=== PATIENT | female | born 1970 | race Two or more races ===

== ENCOUNTER 2024-03-29 13:17 | Inpatient (IN) | payer MEDICARE, MEDICAID ==
[~2024-03-29] VITALS: Ht 154.9 cm; Wt 84.5 kg
[2024-03-29 14:41] LABS: HEMATOCRIT 44.3 % (36-46); HEMOGLOBIN 15.2 g/dL (12.0-16.0); MEAN CORPUSCULAR HEMOGLOBIN 30.2 pg (26.0-34.0); MEAN CORPUSCULAR HGB CONC 34.3 G/dL (31.0-37.0); MEAN CORPUSCULAR VOLUME 88 fL (80-100); PLATELET COUNT (AUTO) 263 K/uL (150-450); RED BLOOD CELL COUNT(AUTO) 5.03 MIL/uL (4.00-5.20); RED CELL DISTRIBUTION WIDTH 13.1 % (11.5-14.5); WHITE BLOOD COUNT (AUTO) 9.2 K/uL (4.5-11.0)
[2024-03-29 14:45] LABS: ANION GAP 10 mmol/L (8-16); CALCIUM, TOTAL 9.5 mg/dL (8.8-10.5); CARBON DIOXIDE 21 mmol/L (22-29); CHLORIDE 102 mmol/L (98-107); CREATININE 0.66 mg/dL (0.60-1.30); GLOMERULAR FILTR. RATE CALC > 60 mL/min (>60); GLUCOSE,RANDOM 111 mg/dL (70-110); POTASSIUM 4.3 mmol/L (3.5-5.1); SODIUM SERUM 133 mmol/L (136-145); UREA NITROGEN, BLOOD 10 mg/dL (7-18)
[2024-03-29 15:22] LABS: ALCOHOL, BLOOD (SERUM) < 3 mg/dL (0-10)
[2024-03-29 16:18] LABS: BAND NEUTROPHILS % (MANUAL) 0 % (0-5); EOSINOPHILS % (MANUAL) 3 % (1-6); LYMPHOCYTES % (MANUAL) 20 % (22-44); MONOCYTES % (MANUAL) 5 % (2-9); SEGMENTED NEUTROPHILS % 72 % (40-70); TOTAL CELLS COUNTED 100
[2024-03-29 17:23] LABS: COVID AG,FIA SOURCE NASAL SWAB
[2024-03-29 17:41] LABS: SARS-COV2 (COVID) ANTIGEN,FIA Negative (Negative)
[2024-03-29] MEDS ORDERED: OMEP40CA21 PO (18:25)
[2024-03-29] MEDS ORDERED: NITR-75 PO (18:25)
[2024-03-29] MEDS ORDERED: CLON2TAB11 PO (18:25)
[2024-03-29] MEDS ORDERED: PRAZ5 PO (18:25)
[2024-03-29] MEDS ORDERED: DULO20CA71 PO (18:25)
[2024-03-29] MEDS ORDERED: LOSA-382 PO (18:25)
[2024-03-29] MEDS ORDERED: METF-445 PO (18:25)
[2024-03-29] MEDS ORDERED: HYDR25TA PO (18:25)
[2024-03-29] MEDS: ZOLPIDEM TARTRATE 10 MG TABLET PO PRN (19:30)
[2024-03-29] MEDS: LORazepam 2 MG TABLET PO PRN (19:30)
[2024-03-29] MEDS: QUEtiapine FUMARATE 100 MG TABLET PO PRN (19:30)
[2024-03-29] MEDS: ACETAMINOPHEN 325 MG TABLET PO ONE (20:06)
[2024-03-30] MEDS ORDERED: PNEUMOCOCCAL VACCINE POLYVALENT 0.5 ML SYRINGE [PPSV23] IM. ONE (01:15)
[2024-03-30 03:48] LABS: APPEARANCE,URINE CLEAR (CLEAR); BILIRUBIN,URINE NEGATIVE (NEGATIVE); COLOR,URINE YELLOW (YELLOW); GLUCOSE, URINE (UA) NEGATIVE (NEGATIVE); KETONES,URINE =>150 mg/dL (NEGATIVE); LEUKOCYTE ESTERASE ,URINE NEGATIVE (NEGATIVE); NITRATE,URINE NEGATIVE (NEGATIVE); OCCULT BLOOD,URINE NEGATIVE (NEGATIVE); PROTEIN,URINE TRACE mg/dL (NEGATIVE)
[2024-03-30 03:52] LABS: ALCOHOL, URINE DRUG SCREEN NEGATIVE (NEGATIVE); AMPHET/METH SCREEN,URINE NEGATIVE (NEGATIVE); BARBITURATE SCREEN, URINE NEGATIVE (NEGATIVE); BENZODIAZEPINES SCREEN,URINE NEGATIVE (NEGATIVE); CANNABINOID SCREEN,URINE POSITIVE (NEGATIVE); COCAINE SCREEN,URINE NEGATIVE (NEGATIVE); METHADONE SCREEN, URINE NEGATIVE (NEGATIVE); OPIATE SCREEN,URINE NEGATIVE (NEGATIVE); PHENCYCLIDINE SCREEN,URINE NEGATIVE (NEGATIVE)
[2024-03-30] MEDS: MetFORMIN HCL 850 MG TABLET PO SCH (06:43)
[2024-03-30] MEDS: LOSARTAN POTASSIUM 50 MG TABLET PO SCH (08:40)
[2024-03-30] MEDS: HYDROCHLOROTHIAZIDE 25 MG TABLET PO SCH (08:40)
[2024-03-30] MEDS: OMEPRAZOLE 20 MG CAPSULE PO SCH (08:40)
[2024-03-30] MEDS ORDERED: MAG HYDROX/ALUMINUM HYD/SIMETH ES 30 ML SUSPENSION UDCUP PO PRN (09:30)
[2024-03-30] MEDS ORDERED: ACETAMINOPHEN 325 MG TABLET PO PRN (09:30)
[2024-03-30] MEDS ORDERED: DOCUSATE SODIUM 100 MG CAPSULE PO PRN (09:30)
[2024-03-30] MEDS ORDERED: CloNIDine HCL 0.1 MG TABLET PO PRN (09:30)
[2024-03-30] MEDS ORDERED: NICOTINE 14 MG/24 HOUR PATCH TD PRN (09:30)
[2024-03-30] MEDS ORDERED: ALBUTEROL SULFATE HFA 90 MCG/PUFF 8 GM INHALER IH PRN (09:30)
[2024-03-30] MEDS ORDERED: PETROLATUM,WHITE 28 GM JELLY TP PRN (09:30)
[2024-03-30] MEDS ORDERED: GuaiFENesin/D-METHORPHAN [SUGAR-FREE] 200-20MG/10 ML SYRUP UDCUP PO PRN (09:30)
[2024-03-30] MEDS ORDERED: MAGNESIUM HYDROXIDE SUSPENSION 30 ML UDCUP PO PRN (09:30)
[2024-03-30 10:00] VITALS: BP 151/90; PULSE 82; RESP 17; TEMP 97.6; O2SAT 97
[2024-03-30] MEDS: DULoxetine HCL 20 MG CAPSULE PO SCH (13:26)
[2024-03-30] MEDS: DiphenhydrAMINE HCL 25 MG CAPSULE PO PRN (21:42)
[2024-03-30 23:56] VITALS: BP 156/92; PULSE 95; RESP 18; TEMP 97.9; O2SAT 96
[2024-03-31 07:54] LABS: HEMOGLOBIN A1C 6.2 % (3.8-5.6)
[2024-03-31 07:59] LABS: BASOPHILS % (AUTO) 0.6 % (0.0-2.0); EOSINOPHILS % (AUTO) 3.7 % (1.0-6.0); HEMATOCRIT 42.2 % (36-46); HEMOGLOBIN 14.6 g/dL (12.0-16.0); LYMPHOCYTES # (AUTO) 2.5 K/uL (1.0-4.8); LYMPHOCYTES % (AUTO) 29.8 % (22.0-44.0); MEAN CORPUSCULAR HEMOGLOBIN 30.5 pg (26.0-34.0); MEAN CORPUSCULAR HGB CONC 34.7 G/dL (31.0-37.0); MEAN CORPUSCULAR VOLUME 88 fL (80-100); MONOCYTES # (AUTO) 0.7 K/uL (0.1-1.0); MONOCYTES % (AUTO) 8.3 % (2.0-9.0); NEUTROPHILS # (AUTO) 4.9 K/uL (1.8-7.7); NEUTROPHILS % (AUTO) 57.6 % (40.0-70.0); PLATELET COUNT (AUTO) 247 K/uL (150-450); RED CELL DISTRIBUTION WIDTH 13.2 % (11.5-14.5); WHITE BLOOD COUNT (AUTO) 8.4 K/uL (4.5-11.0)
[2024-03-31 08:07] LABS: ALANINE AMINOTRANSFERASE 73 U/L (12-78); ALBUMIN 3.4 g/dL (3.4-5.0); ALKALINE PHOSPHATASE 97 U/L (46-116); ANION GAP 9 mmol/L (8-16); ASPARTATE AMINOTRANSFERASE 51 U/L (15-37); BILIRUBIN,TOTAL 0.5 mg/dL (0.1-1.0); CARBON DIOXIDE 26 mmol/L (22-29); CHLORIDE 102 mmol/L (98-107); CHOL/HDL RATIO 4.6 (3.9-5.7); CHOLESTEROL 184 mg/dL (131-200); CREATININE 0.89 mg/dL (0.60-1.30); GLOMERULAR FILTR. RATE CALC > 60 mL/min (>60); GLUCOSE,RANDOM 176 mg/dL (70-110); HDL CHOLESTEROL 40 mg/dL (40-60); LDL CHOL (CALC.) 96 mg/dL (0-130); POTASSIUM 4.2 mmol/L (3.5-5.1); SODIUM SERUM 137 mmol/L (136-145); THYROID STIMULATING HORMONE 1.33 uIU/mL (0.36-3.74); TRIGLYCERIDES 240 mg/dL (15-150); UREA NITROGEN, BLOOD 15 mg/dL (7-18)
[2024-03-31] MEDS: MULTIVITAMINS WITH MINERALS, THERAPEUTIC TABLET PO SCH (08:09)
[2024-03-31 12:17] VITALS: BP 148/103; PULSE 101; RESP 20; TEMP 98; O2SAT 94
[2024-03-31] MEDS: ONDANSETRON HCL 4 MG TABLET PO PRN (12:17)
[2024-03-31] MEDS: IBUPROFEN 400 MG TABLET PO PRN (12:17)
[2024-03-31 21:22] VITALS: BP 142/81; PULSE 86; RESP 18; TEMP 97.9; O2SAT 97
[2024-04-01 08:30] VITALS: BP 133/76; PULSE 92; RESP 18; TEMP 97.6; O2SAT 98
[2024-04-01] MEDS: LOPERAMIDE HCL 2 MG CAPSULE PO PRN (08:43)
[2024-04-01] MEDS ORDERED: DULO20CA71 PO (14:17)
[2024-04-01] MEDS ORDERED: DIPH-1243 PO (14:17)
== END 2024-04-01 15:15 | disposition home or self-care (01) | DRG 885 ==
LOC: EMS 13:24 → 3EI 16:07
PROVIDERS: ADMIT Psychiatry & Neurology Psychiatry; ATTEND Psychiatry & Neurology Psychiatry
PROC: GZ52ZZZ Individual Psychotherapy, Cognitive (ICD-10-PCS; principal; 2024-03-30)
DX: F33.2 Major depressive disorder, recurrent severe without psychotic features (principal); R45.851 Suicidal ideations; K21.9 Gastro-esophageal reflux disease without esophagitis; I10 Essential (primary) hypertension; E78.5 Hyperlipidemia, unspecified; E11.9 Type 2 diabetes mellitus without complications; F12.90 Cannabis use, unspecified, uncomplicated; Z20.822 Contact with and (suspected) exposure to COVID-19; Z88.8 Allergy status to other drugs, medicaments and biological substances; Z79.899 Other long term (current) drug therapy
CPT/HCPCS: 80048; 80053; 80061; 80307; 83036; 84443; 85025; 99285; G0480; Q0162